=== PATIENT | female | born 1980 | race Asian ===

== ENCOUNTER 2019-04-25 16:12 | Emergency (ER) | payer BC, OTHER ==
[~2019-04-25] VITALS: Ht 172.7 cm; Wt 73.5 kg
[2019-04-25 16:12] VITALS: BP 159/111
[2019-04-25 17:33] LABS: RAPID INFLUENZA A Negative (Negative); RAPID INFLUENZA B Negative (Negative)
--- NOTE | 2019-04-25 18:06 | NUR ---
CALL TO HEALTH DEPARTMENT ([phone]) REGARDING PT POSSIBLE EXPOSURE AND POTENTIAL NEED FOR FOLLOW UP CONTACT.
--- NOTE | 2019-04-25 18:20 | NUR ---
BREAK RN: PT UPRIGHT ON GURNEY AWAKE & COMFORTABLE, RESPONDS APPROP TO STAFF, NO RESP DISTRESS NOTED, NO NEEDS AT THIS TIME, CALL LIGHT WITHIN REACH.
--- NOTE | 2019-04-25 20:37 | NUR ---
DC EDUCATION PROVIDED, PT DEMONSTRATES UNDERSTANDING. PT AMBULATED STEADILY TO DC WITH RN WEARING MASK
== END 2019-04-25 20:39 | disposition home or self-care (01) ==
LOC: ED 19:00
DX: J20.9 Acute bronchitis, unspecified (principal); B34.9 Viral infection, unspecified
CPT/HCPCS: 71045; 87081; 87400; 87880; 99284